=== PATIENT | female | born 1995 | race African-American/Black ===

== ENCOUNTER 2020-05-19 18:30 | Emergency (ER) | payer SELFPAY ==
[2020-05-19] MEDS ORDERED: ONDANSETRON 4 MG/2 ML VIAL ONE ×2 (21:39→23:43)
[2020-05-19 21:51] LABS: Absolute Lymphocytes (CBC) 1.4 K/uL (0.7-4.9); Basophils % 0.3 % (0-1.3); Hematocrit 45.1 % (36.0-45.0); Lymphocytes % 16.1 % (15.3-44.8); MPV 11.1 fL (7.6-11.3); RBC Red Blood Cell Count 5.17 M/uL (3.86-4.86)
[2020-05-19 22:02] LABS: ALT/SGPT 181 U/L (12-78); AST/SGOT 107 U/L (15-37); Albumin 3.8 g/dL (3.4-5.0); Alkaline Phosphatase 75 U/L (45-117); BUN Blood Urea Nitrogen 8 mg/dL (7-18); Bicarbonate 27 mmol/L (21-32); Bilirubin Direct 0.2 mg/dL (0-0.2); Bilirubin Total 0.9 mg/dL (0.2-1.0); Glucose Level 278 mg/dL (74-106); Lipase 122 U/L (73-393); Potassium 3.5 mmol/L (3.5-5.1); Protein, Total 9.3 g/dL (6.4-8.2); Sodium Level 134 mmol/L (136-145)
--- OUTSIDE RECORDS SUMMARY | 2020-05-19 22:52 | XMS REPORT | Continuity of Care Document ---
:1995 Author Organization [facility] t Address [address] [place] [address] Care Team Providers Name Role Phone Unavailable Unavailable Unavailable Problems This patient has no known problems. Allergies, Adverse Reactions, Alerts This patient has no known allergies or adverse reactions. Medications This patient has no known medications. Procedures This patient has no known procedures. Results This patient has no known results.
[2020-05-19] MEDS ORDERED: METOCLOPRAMIDE 10 MG/2mL INJ ONE (23:43)
[2020-05-19] MEDS ORDERED: NA CHLORIDE 0.9% 100 ML IV ONE (23:44)
[2020-05-20] MEDS ORDERED: FENTANYL CITR 100 MCG/2 ML ONE (00:22)
[2020-05-20] MEDS ORDERED: NA CHLORIDE 0.9% 1,000 ML ONE (00:28)
[2020-05-20] MEDS ORDERED: DIPHENHYDRAMINE 50 MG/ML VIAL ONE (00:28)
[2020-05-20 01:24] LABS: Blood Morphology Comment NOT SEEN (NOT SEEN); Platelet Estimate ADEQ; Urine White Blood Cell Casts OK
--- NOTE | 2020-05-20 10:34 | ER ---
Nurse's Notes [facility] Name: Radha Garsia Age: 25 yrs Sex: Female : 1995 Arrival Date: 05/19/2020 Time: 18:39 Bed 19 Private MD: Diagnosis: Headache;Vomiting Presentation: 05/19 18:44 Chief complaint: Patient states: I got tested for COVID-19 pn Monday. Symptoms when ca1 away but this morning I tried to eat something and I threw it up. I can't eat anything, I can't keep anything down. I am diabetic so am worried, I have headaches, body aches, fatigue. Denies abdominal pain. Denies fever. Reports occasional cough. Denies SOB at this time. Coronavirus screen: Patient reports a cough. Patient denies shortness of breath or difficulty breathing. Patient denies measured and/or subjective temperature greater than 100.4F prior to today's visit. Patient denies travel on a cruise ship or to a country the [facility] currently lists as an affected area. Patient denies contact with known and/or suspected case of COVID-19. I Tested on Monday at [place], No results at this time. Reports symptoms resolved. Ebola Screen: Patient negative for fever greater than or equal to 101.5 degrees Fahrenheit, and additional compatible Ebola Virus Disease symptoms Patient denies exposure to infectious person. Patient denies travel to an Ebola-affected area in the 21 days before illness onset. No symptoms or risks identified at this time. Initial Sepsis Screen: Does the patient meet any 2 criteria? No. Patient's initial sepsis screen is negative. Does the patient have a suspected source of infection? No. Patient's initial sepsis screen is negative. Risk Assessment: Do you want to hurt yourself or someone else? Patient reports no desire to harm self or others. Onset of symptoms was May 19, 2020. 18:44 Method Of Arrival: Ambulatory ca1 18:44 Acuity: NITO 3 ca1 Triage Assessment: 23:44 General: Appears in no apparent distress. uncomfortable, Behavior is calm, cooperative. ls4 GI: Reports nausea, vomiting. 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 - Social history:: Smoking status: Patient denies any tobacco usage or history of. Screenin:28 Abuse screen: Denies threats or abuse. Nutritional screening: No deficits noted. ea Tuberculosis screening: No symptoms or risk factors identified. Fall Risk None identified. Assessment: 21:56 General: Appears in no apparent distress. Behavior is calm, cooperative, appropriate ea for age. Pain: Denies pain. Neuro: Level of Consciousness is awake, alert, obeys commands, Oriented to person, place, time. Cardiovascular: Patient's skin is warm and dry. Respiratory: Airway is patent Respiratory effort is even, unlabored, Respiratory pattern is regular, symmetrical. GI: Abdomen is non-distended. Derm: Skin is dry, Skin is pale, Skin temperature is warm. 22:36 Reassessment: Patient and/or family updated on plan of care and expected duration. Pain ea level reassessed. Patient is alert, oriented x 3, equal unlabored respirations, skin warm/dry/pink. 05/20 00:34 Reassessment: Patient appears in no apparent distress at this time. Patient and/or ls4 family updated on plan of care and expected duration. Pain level reassessed. Patient is alert, oriented x 3, equal unlabored respirations, skin warm/dry/pink. Patient states feeling better. Patient states symptoms have improved. pt states she is feeling better and would like to go home . 02:24 Reassessment: Patient appears in no apparent distress at this time. Patient is alert, lp1 oriented x 3, equal unlabored respirations, skin warm/dry/pink. patient demonstrates understanding of discharge instructions, family member at bedside. Vital Signs: 05/19 18:44 BP 134 / 108; Pulse 111; Resp 18; Temp 99.3(O); Pulse Ox 97% on R/A; Weight 104.33 kg ca1 (R); Height 5 ft. 9 in. (175.26 cm) (R); 23:45 BP 114 / 87; Pulse 101; Resp 18; Pulse Ox 99% on R/A; Pain 6/10; ls4 05/20 02:23 BP 114 / 77; Pulse 93; Resp 18; Temp 98.8; Pulse Ox 99% on R/A; lp1 05/19 18:44 Body Mass Index 33.96 (104.33 kg, 175.26 cm) ca1 ED Course: 05/19 18:39 Patient arrived in ED. mr 18:48 Triage completed. ca1 18:54 Arm band placed on right wrist. ca1 20:39 Darnell Chan PA is PHCP. jmm 20:39 Artur Buchanan MD is Attending Physician. jmm 21:25 Roopa Reza, ADAN is Primary Nurse. ea 21:28 Inserted saline lock: 20 gauge in right antecubital area, using aseptic technique. ea 21:29 Patient has correct armband on for positive identification. Bed in low position. Call ea light in reach. Side rails up X 1. 22:30 Report given to Geri ARELLANO. ea 05/20 00:36 No provider procedures requiring assistance completed. Patient maintains SpO2 ls4 saturation greater than 95% on room air. 02:02 Head Brain Wo Cont In Process Unspecified. EDMS 02:24 IV discontinued, No redness/swelling at site. Pressure dressing applied. lp1 Administered Medications: 05/19 21:35 Drug: Zofran (Ondansetron) 4 mg Route: IVP; Site: right antecubital; ea 05/20 00:35 Follow up: Response: No adverse reaction ls4 00:35 Not Given (Patient Refused): fentaNYL (PF) 25 mcg IVP once; RASS on ADMIN: Combtv4, ls4 Very Agttd3, Agttd2, Rstlss1, AlertClm0, Drwsy-1, Lt Sdtn-2, Mod Sdtn-3, Dp Sdtn-4, UnArsble-5 00:35 Drug: diphenhydrAMINE 50 mg Route: IVP; Site: right antecubital; ls4 Point of Care Testing: Blood Glucose: 05/19 18:54 Blood Glucose: 227 mg/dL; ca1 Ranges: Outcome: 05/20 01:48 Discharge ordered by . jmm 02:24 Discharged to home ambulatory, with family. lp1 02:24 Condition: good 02:24 Discharge instructions given to patient, Instructed on discharge instructions, follow up and referral plans. medication usage, Demonstrated understanding of instructions, follow-up care, medications, Prescriptions given X 2. 02:25 Patient left the ED. lp1 Signatures: Dispatcher [employer] EDMS Darnell Chan PA PA jmm Rivera, Mary mr Landy Barragan, RN RN lp1 Roopa Reza, RN Geri Johnson ea, RN RN ls4 Margot Duckworth RN RN ca1
--- NOTE | 2020-05-20 10:35 | EDPHYS ---
Physician Documentation [facility] Name: Radha Garsia Age: 25 yrs Sex: Female : 1995 Arrival Date: 05/19/2020 Time: 18:39 Bed 19 Private MD: ED Physician Artur Buchanan HPI: 05/19 20:45 This 25 yrs old Black Female presents to ER via Ambulatory with complaints of Vomiting, jmm Dehydration. 20:45 The patient presents to the emergency department with nausea, vomiting. Onset: The jmm symptoms/episode began/occurred gradually, 2 week(s) ago. Possible causes: unknown. The symptoms are aggravated by nothing. The symptoms are alleviated by nothing. This is a 25 year old female with a history of DM, HTN that presents to the ED with complaints fo frontal headache described as a migraine. Patient states this pain has been ongoing for the past week but states new onset of migraines beginning approx 1 month ago. . 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 - Social history:: Smoking status: Patient denies any tobacco usage or history of. ROS: 20:45 Cardiovascular: Negative for chest pain, palpitations, and edema, Respiratory: Negative jmm for shortness of breath, cough, wheezing, and pleuritic chest pain. 20:45 Constitutional: Positive for body aches. 20:45 Abdomen/GI: Positive for nausea and vomiting. 20:45 All other systems are negative. Exam: 20:45 Constitutional: This is a well developed, well nourished patient who is awake, alert, jmm and in no acute distress. Head/Face: atraumatic. Eyes: EOMI, no conjunctival erythema appreciated ENT: Moist Mucus Membranes Neck: Trachea midline, Supple Chest/axilla: Normal chest wall appearance and motion. Cardiovascular: Regular rate and rhythm. No edema appreciated Respiratory: Normal respirations, no respiratory distress appreciated Abdomen/GI: Non distended, soft Back: Normal ROM Skin: General appearance color normal MS/ Extremity: Moves all extremities, no obvious deformities appreciated, no edema noted to the lower extremities Neuro: Awake and alert, normal gait Psych: Behavior is normal, Mood is normal, Patient is cooperative and pleasant Vital Signs: 18:44 BP 134 / 108; Pulse 111; Resp 18; Temp 99.3(O); Pulse Ox 97% on R/A; Weight 104.33 kg ca1 (R); Height 5 ft. 9 in. (175.26 cm) (R); 23:45 BP 114 / 87; Pulse 101; Resp 18; Pulse Ox 99% on R/A; Pain 6/10; ls4 05/20 02:23 BP 114 / 77; Pulse 93; Resp 18; Temp 98.8; Pulse Ox 99% on R/A; lp1 05/19 18:44 Body Mass Index 33.96 (104.33 kg, 175.26 cm) ca1 MDM: 05/19 20:45 Patient medically screened. [facility] 05/20 01:45 Data reviewed: vital signs, nurses notes. Counseling: I had a detailed discussion with cony the patient and/or guardian regarding: the historical points, exam findings, and any diagnostic results supporting the discharge/admit diagnosis, lab results, the need for outpatient follow up, to return to the emergency department if symptoms worsen or persist or if there are any questions or concerns that arise at home. ED course: Pain is alleviated in the ED. Patient is advised to follow up with PCP and otherwise given strict return precautions. Patient understood and agrees with the plan of care. . 05/19 22:30 Order name: Urine --Ancillary (enter results) tt3 05/19 22:31 Order name: Urine Dipstick--Ancillary (enter results) tt3 05/20 01:06 Order name: Basic Metabolic Panel; Complete Time: 01:14 EDAR 05/20 01:06 Order name: Liver (Hepatic) Function; Complete Time: 01:14 EDAR 05/20 01:06 Order name: Lipase; Complete Time: 01:14 EDAR 05/20 01:06 Order name: CBC with Automated Diff; Complete Time: 01:34 EDMS 05/20 01:24 Order name: CBC Smear Scan; Complete Time: 01:34 EDMS 05/20 01:59 Order name: Head Brain Wo Cont EDMS 05/19 20:57 Order name: IV Saline Lock; Complete Time: 21:28 [facility] 05/19 20:57 Order name: Labs collected and sent; Complete Time: 21:28 [facility] 05/19 20:57 Order name: Urine Dipstick-Ancillary (obtain specimen); Complete Time: 00:35 [facility] 05/19 20:58 Order name: Urine Test (obtain specimen); Complete Time: 00:35 jm Administered Medications: 05/19 21:35 Drug: Zofran (Ondansetron) 4 mg Route: IVP; Site: right antecubital; ea 05/20 00:35 Follow up: Response: No adverse reaction ls4 00:35 Not Given (Patient Refused): fentaNYL (PF) 25 mcg IVP once; RASS on ADMIN: Combtv4, ls4 Very Agttd3, Agttd2, Rstlss1, AlertClm0, Drwsy-1, Lt Sdtn-2, Mod Sdtn-3, Dp Sdtn-4, UnArsble-5 00:35 Drug: diphenhydrAMINE 50 mg Route: IVP; Site: right antecubital; ls4 Point of Care Testing: Blood Glucose: 05/19 18:54 Blood Glucose: 227 mg/dL; ca1 Ranges: Critical Glucose Levels:Adult <50 mg/dl or >400 mg/dl <40 mg/dl or >180 mg/dl Disposition: 05/20 06:20 Co-signature as Attending Physician, Artur Buchanan MD I agree with the assessment and [facility] plan of care. Disposition: 05/20/20 01:48 Discharged to Home. Impression: Headache, Vomiting. - Condition is Stable. - Discharge Instructions: General Headache Without Cause, Nausea and Vomiting, Adult. - Prescriptions for Zofran ODT 4 mg Oral tablet,disintegrating - place 1 tablet by TRANSLINGUAL route every 4-6 hours; 20 tablet. Fiorinal 50- 325-40 mg Oral Capsule - take 1 capsule by ORAL route every 4 hours As needed - not to exceed 6 capsules per day; 20 capsule. - Medication Reconciliation Form, Thank You Letter, Antibiotic Education, Prescription Opioid Use form. - Follow up: Private Physician; When: 2 - 3 days; Reason: Recheck today's complaints, Continuance of care, Re-evaluation by your physician. Signatures: Dispatcher [employer] EDMS DewayneArtur MD MD cha Mickail, Joel, PA PA jmm Landy Barragan RN RN lp1 Roopa Reza, RN RN Geri Aguilera RN RN ls4 Margot Duckworth RN RN ca1 Corrections: (The following items were deleted from the chart) 02:25 01:48 05/20/2020 01:48 Discharged to Home. Impression: Headache; Vomiting. Condition is lp1 Stable. Forms are Medication Reconciliation Form, Thank You Letter, Antibiotic Education, Prescription Opioid Use. Follow up: Private Physician; When: 2 - 3 days; Reason: Recheck today's complaints, Continuance of care, Re-evaluation by your physician. cony
--- NOTE | 2020-05-20 13:00 | RAD REPORT ---
EXAM DESCRIPTION: Head Brain Wo Cont CLINICAL HISTORY: HEADACHE COMPARISON: None. TECHNIQUE: CT HEAD WITHOUT IV CONTRAST on 05/19/2020 10:05 PM CDT This exam was performed according to our departmental dose-optimization program, which includes autom ated exposure control, adjustment of the mA and/or kV according to patient size and/or use of iterati ve reconstruction technique. FINDINGS: There is no acute hemorrhage, mass effect or midline shift. Marie-white differentiation is preserved. There is no hydrocephalus. There is no significant volume loss for age. The calvarium is intact. Orbits and globes are unremarkable. The paranasal sinuses are clear. Mastoid air cells are clear. IMPRESSION: No acute intracranial findings. Electronically signed by: Chace Baker MD 05/20/2020 1:30 AM CDT Due to temporary technical issues with the PACS/Fluency reporting system, reports are being signed by the in house radiologist without review as a courtesy to ensure prompt reporting. The interpreting r adiologist is fully responsible for the content of the report.
[2020-05-20 13:02] LABS: Urine Specific Gravity 1.025 (1.005-1.030)
[2020-05-20 13:02] LABS: Urine Blood NEGATIVE (NEG); Urine Glucose 2+ (NEG); Urine Protein 2+ (NEG); Urine Specific Gravity 1.025 (1.005-1.030); Urine pH 5.5 (5.0-7.0)
[2020-05-20 15:32] VITALS: O2SAT 99
[2020-05-20 15:33] VITALS: BP 114/77; TEMP 98.8
== END 2020-05-20 02:25 | disposition home or self-care (01) ==
LOC: ER 18:30
DX: R51 Headache (principal); I10 Essential (primary) hypertension
CPT/HCPCS: 36415; 70450; 80048; 80076; 81003; 81025; 82947; 83690; 85025; 96374; 96375; 99284; J1200; J2405; J2765; J3010; J7030

== ENCOUNTER 2021-07-07 11:16 | Emergency (ER) | payer SELFPAY ==
--- OUTSIDE RECORDS SUMMARY | 2021-07-07 11:18 | XMS REPORT | Continuity of Care Document ---
:1995 Author Organization [facility] t Address [address] [place] [address] [address]. [address] [place] [id number] Care Team Providers Name Role Phone Unavailable Unavailable Unavailable Problems This patient has no known problems. Allergies, Adverse Reactions, Alerts This patient has no known allergies or adverse reactions. Medications This patient has no known medications. Procedures This patient has no known procedures. Results This patient has no known results.
[2021-07-07] MEDS ORDERED: ONDANSETRON 4 MG (ODT) TAB ONE ×2 (13:21→15:21)
--- NOTE | 2021-07-07 13:37 | RAD REPORT ---
EXAM DESCRIPTION: Christen Almendarez (2 Views)07/07/2021 1:29 pm CLINICAL HISTORY: sob COMPARISON: 2017 FINDINGS: The lungs appear clear of acute infiltrate. The heart is normal size IMPRESSION: No acute abnormalities displayed
--- NOTE | 2021-07-07 16:06 | EDPHYS ---
Physician Documentation [facility] Name: Radha Garsia Age: 26 yrs Sex: Female : 1995 Arrival Date: 07/07/2021 Time: 11:17 Bed DIS2 Private MD: ED Physician Artemio Cedillo HPI: 07/07 16:04 This 26 yrs old Black Female presents to ER via Ambulatory with complaints of Vomiting, kb Shortness Of Breath. 16:04 The patient presents to the emergency department with nausea, vomiting. Onset: The kb symptoms/episode began/occurred yesterday. Possible causes: unknown. The symptoms are aggravated by nothing. The symptoms are alleviated by nothing. Associated signs and symptoms: Pertinent positives: nausea, vomiting. Severity of symptoms: At their worst the symptoms were moderate in the emergency department the symptoms are unchanged. The patient has not experienced similar symptoms in the past. The patient has not recently seen a physician. Pt reports nausea, vomiting, decreased appetite and shortness of breath since yesterday. 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 - Social history:: Smoking status: Patient denies any tobacco usage or history of. ROS: 16:04 Constitutional: Negative for fever, chills, and weight loss. kb 16:04 Respiratory: Positive for shortness of breath, Negative for cough, dyspnea on exertion, hemoptysis, orthopnea, pleurisy, sputum production, wheezing. 16:04 Abdomen/GI: Positive for nausea and vomiting, Negative for abdominal pain. 16:04 All other systems are negative. Exam: 16:04 Constitutional: This is a well developed, well nourished patient who is awake, alert, kb and in no acute distress. Head/Face: Normocephalic, atraumatic. ENT: Moist Mucous membranes Cardiovascular: Regular rate and rhythm with a normal S1 and S2. No gallops, murmurs, or rubs. No pulse deficits. Respiratory: Respirations even and unlabored. No increased work of breathing, no retractions or nasal flaring. Abdomen/GI: Soft, non-tender. No distention Back: No spinal tenderness. No costovertebral tenderness. Full range of motion. Skin: Warm, dry with normal turgor. Normal color. MS/ Extremity: Pulses equal, no cyanosis. Neurovascular intact. Full, normal range of motion. Neuro: Awake and alert, GCS 15, oriented to person, place, time, and situation. Moves all extremities. Normal gait. Psych: Awake, alert, with orientation to person, place and time. Behavior, mood, and affect are within normal limits. Vital Signs: 12:56 BP 132 / 84; Pulse 91; Resp 15; Temp 97.4; Pulse Ox 96% ; Weight 99.79 kg; jl7 15:07 BP 128 / 78; Pulse 82; Resp 17; Pulse Ox 98% on R/A; ld1 MDM: 13:00 Patient medically screened. kb 16:06 Data reviewed: vital signs, nurses notes. Data interpreted: Pulse oximetry: on room air kb is 98 %. Interpretation: normal. Counseling: I had a detailed discussion with the patient and/or guardian regarding: the historical points, exam findings, and any diagnostic results supporting the discharge/admit diagnosis, lab results, radiology results, the need for outpatient follow up, a family practitioner, to return to the emergency department if symptoms worsen or persist or if there are any questions or concerns that arise at home. 07/07 15:54 Order name: SARS-COV-2 RT PCR; Complete Time: 16:04 EDMS 07/07 13:00 Order name: Chest Pa And Lat (2 Views) XRAY; Complete Time: 13:51 kb Administered Medications: 15:00 Drug: Zofran (Ondansetron) 4 mg Route: PO; ld1 15:09 Follow up: Response: No adverse reaction ld1 Disposition: 07/08 07:16 Co-signature as Attending Physician, Artemio Cedillo MD I agree with the assessment and kdr plan of care. Disposition Summary: 07/07/21 16:06 Discharge Ordered Location: Home kb Condition: Stable kb Diagnosis - Nausea with vomiting, unspecified kb Followup: kb - With: Emergency Department - When: As needed - Reason: Worsening of condition Followup: kb - With: Private Physician - When: 2 - 3 days - Reason: Recheck today's complaints, Continuance of care, Re-evaluation by your physician Discharge Instructions: - Discharge Summary Sheet kb - Nausea and Vomiting, Adult, [id number] kb Forms: - Medication Reconciliation Form kb - Thank You Letter kb - Antibiotic Education kb - Prescription Opioid Use kb - Work release form aa5 Prescriptions: - Zofran 4 mg Oral Tablet - take 1 tablet by ORAL route every 6 hours As needed; 20 tablet; Refills: 0, kb Product Selection Permitted Signatures: Dispatcher [employer] EDMariama Del Castillo, KODAK-C KODAK-Artemio Vigil MD MD kdr Leal, Jahala RN RN jl7 [place] Young RN RN ld1 Corrections: (The following items were deleted from the chart) 07/07 14:52 13:00 CORONAVIRUS+[email or web address] ordered. [facility]
--- NOTE | 2021-07-07 16:06 | ER ---
Nurse's Notes [facility] Name: Radha Garsia Age: 26 yrs Sex: Female : 1995 Arrival Date: 07/07/2021 Time: 11:17 Bed DIS2 Private MD: Diagnosis: Nausea with vomiting, unspecified Presentation: 07/07 12:56 Chief complaint: Patient states: Decreased appetite, nausea and SOB x 2 days. 7 Coronavirus screen: Client denies travel out of the [place] in the last 14 days. shortness of breath, Client presents with at least one sign or symptom that may indicate coronavirus-19. Standard/surgical mask placed on the client. Provider contacted for isolation considerations. Ebola Screen: No symptoms or risks identified at this time. Initial Sepsis Screen: Does the patient meet any 2 criteria? No. Patient's initial sepsis screen is negative. Does the patient have a suspected source of infection? No. Patient's initial sepsis screen is negative. Risk Assessment: Do you want to hurt yourself or someone else? Patient reports no desire to harm self or others. Onset of symptoms was July 06, 2021. 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 - Social history:: Smoking status: Patient denies any tobacco usage or history of. Screenin:07 Abuse screen: Denies threats or abuse. Denies injuries from another. Nutritional ld1 screening: No deficits noted. Tuberculosis screening: No symptoms or risk factors identified. Fall Risk None identified. Assessment: 15:07 General: Appears in no apparent distress. comfortable, Behavior is calm, cooperative, ld1 appropriate for age. Pain: Denies pain. Neuro: Level of Consciousness is awake, alert, obeys commands, Oriented to person, place, time, situation. Cardiovascular: Capillary refill < 3 seconds Patient's skin is warm and dry. Respiratory: Airway is patent Respiratory effort is even, unlabored, Respiratory pattern is regular, symmetrical. GI: Abdomen is flat, non-distended, Reports nausea, vomiting. : No signs and/or symptoms were reported regarding the genitourinary system. EENT: No signs and/or symptoms were reported regarding the EENT system. Derm: No signs and/or symptoms reported regarding the dermatologic system. Musculoskeletal: No signs and/or symptoms reported regarding the musculoskeletal system. 16:25 Neuro: Level of Consciousness is awake, alert, obeys commands, Oriented to person, aa5 place, time, situation. Respiratory: Airway is patent Respiratory effort is even, unlabored, Respiratory pattern is regular, symmetrical. Derm: Skin is dry, Skin is normal, Skin temperature is warm. Vital Signs: 12:56 BP 132 / 84; Pulse 91; Resp 15; Temp 97.4; Pulse Ox 96% ; Weight 99.79 kg; jl7 15:07 BP 128 / 78; Pulse 82; Resp 17; Pulse Ox 98% on R/A; ld1 ED Course: 11:17 Patient arrived in ED. ds1 12:52 Artemio Cedillo MD is Attending Physician. kdr 12:58 Triage completed. jl7 12:58 Arm band placed on right wrist. jl7 12:59 [place]ama [place] F[facility]C [facility] kb 13:27 Chest Pa And Lat (2 Views) XRAY In Process Unspecified. EDMS 14:58 Florida Young, RN is Primary Nurse. ld1 15:07 Patient has correct armband on for positive identification. Call light in reach. Pulse ld1 ox on. NIBP on. 15:07 No provider procedures requiring assistance completed. ld1 16:25 Patient did not have IV access during this emergency room visit. aa5 Administered Medications: 15:00 Drug: Zofran (Ondansetron) 4 mg Route: PO; ld1 15:09 Follow up: Response: No adverse reaction ld1 Outcome: 16:06 Discharge ordered by . kb 16:25 Discharged to home ambulatory. aa5 16:25 Condition: stable 16:25 Discharge instructions given to patient, Instructed on discharge instructions, follow up and referral plans. medication usage, Demonstrated understanding of instructions, follow-up care, medications, Prescriptions given X 1. 16:27 Patient left the ED. aa5 Signatures: Dispatcher [employer] EDMS Mariama Hills FNP-C FNP-Tariqb Artemio Cedillo MD MD kdr Mary Richardson ds1 Lisa Diego, RN RN aa5 Tigist Sanders RN RN jl7 Florida Young RN RN ld1
[2021-07-07 16:47] VITALS: TEMP 97.4
[2021-07-07 16:49] VITALS: BP 128/78; O2SAT 98
== END 2021-07-07 16:27 | disposition home or self-care (01) ==
LOC: ER 11:16
DX: R11.2 Nausea with vomiting, unspecified (principal); Z20.822 Contact with and (suspected) exposure to COVID-19; I10 Essential (primary) hypertension
CPT/HCPCS: 71046; 99284; U0003

== ENCOUNTER 2021-12-01 20:03 | Emergency (ER) | payer OTHER, SELFPAY ==
--- OUTSIDE RECORDS SUMMARY | 2021-12-01 20:06 | XMS REPORT | Continuity of Care Document ---
:1995 Author Organization [facility] Address [address] [place] [address] Dr. Ayala [address] [place] [id number] Care Team Providers Name Role Phone RHEA Attending Clinician Unavailable RHEA Admitting Clinician Unavailable Payers Payer Name Policy Type Policy Number Effective Date Expiration Date S ource Problems This patient has no known problems. Allergies, Adverse Reactions, Alerts This patient has no known allergies or adverse reactions. Medications This patient has no known medications. Procedures This patient has no known procedures. Encounters Start End Encounter Admission Attending Care Care Encounter Source Date/Time Date/Time Type Type Clinicians Facility Department ID 2021-10-20 2021-10-20 Outpatient IAN FAJARDO [facility] [phone] [place] 11:25:00 11:25:00 [place] [id number] [facility] Program Results This patient has no known results.
[2021-12-01 22:08] LABS: SARS-COV-2 RT PCR POSITIVE (NEGATIVE)
--- NOTE | 2021-12-01 22:29 | ER ---
Nurse's Notes [facility] Name: Radha Garsia Age: 26 yrs Sex: Female : 1995 Arrival Date: 12/01/2021 Time: 20:17 Bed DIS1 Private MD: Diagnosis: Positive Covid 19 Presentation: 12/01 20:46 Chief complaint:. ld1 20:49 Chief complaint: Patient states: COVID symptoms - sore throat, headache, SOB. ld1 Coronavirus screen: Client presents with at least one sign or symptom that may indicate coronavirus-19. Standard/surgical mask placed on the client. Ebola Screen: No symptoms or risks identified at this time. Initial Sepsis Screen: Does the patient meet any 2 criteria? No. Patient's initial sepsis screen is negative. Does the patient have a suspected source of infection? No. Patient's initial sepsis screen is negative. Risk Assessment: Do you want to hurt yourself or someone else? Patient reports no desire to harm self or others. Onset of symptoms was December 01, 2021. 20:49 Method Of Arrival: Ambulatory ld1 20:49 Acuity: NITO 4 ld1 Triage Assessment: 20:50 General: Appears in no apparent distress. comfortable, Behavior is calm, cooperative, ld1 appropriate for age. Pain: Denies pain. Respiratory: Reports shortness of breath cough that is Airway is patent Respiratory effort is even, unlabored, Respiratory pattern is regular, symmetrical, Onset: The symptoms/episode began/occurred gradually, the patient has mild shortness of breath. 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 - Social history:: Smoking status: Patient denies any tobacco usage or history of. Patient/guardian denies using alcohol. Screenin:45 Abuse screen: Denies threats or abuse. Nutritional screening: No deficits noted. bb Tuberculosis screening: No symptoms or risk factors identified. Fall Risk None identified. Assessment: 22:45 Reassessment: Patient is alert, oriented x 3, equal unlabored respirations, skin bb warm/dry/pink. pt seen by this RN at discharge pt verbalized understanding of and agrees to plan of care discharge instructions given pt ambulated with steady gait to exit. Vital Signs: 20:49 BP 124 / 81; Pulse 98; Resp 18; Temp 98.4(O); Pulse Ox 100% on R/A; Weight 104.33 kg; ld1 Height 5 ft. 8 in. (172.72 cm); Pain 0/10; 20:49 Body Mass Index 34.97 (104.33 kg, 172.72 cm) ld1 ED Course: 20:17 Patient arrived in ED. kc5 20:50 Triage completed. ld1 20:50 Arm band placed on right wrist. ld1 22:10 Adrien Hunter MD is Attending Physician. pkl 22:45 Patient has correct armband on for positive identification. bb 22:45 No provider procedures requiring assistance completed. Patient did not have IV access bb during this emergency room visit. 22:46 COVID-19/FLU A+B (Document "Date of Onset" if Symptomatic) Sent. bb 22:46 Strep Sent. bb Administered Medications: No medications were administered Outcome: 22:28 Discharge ordered by . pkl 22:45 Discharged to home ambulatory. bb 22:45 Condition: stable 22:45 Discharge instructions given to patient, Instructed on discharge instructions, follow up and referral plans. medication usage, Demonstrated understanding of instructions, follow-up care, medications, Prescriptions given X 1. 22:46 Patient left the ED. bb Signatures: Adrien Hunter MD MD pkl Symone Stein RN RN bb [place] Young RN RN ld1 Kina Briggs kc5
--- NOTE | 2021-12-01 22:29 | EDPHYS ---
Physician Documentation [facility] Name: Radha Garsia Age: 26 yrs Sex: Female : 1995 Arrival Date: 12/01/2021 Time: 20:17 Bed DIS1 Private MD: ED Physician Adrien Hunter HPI: 12/01 22:20 This 26 yrs old Black Female presents to ER via Ambulatory with complaints of Shortness pkl Of Breath, Fever, Cough, Sore Throat. 22:20 Onset: The symptoms/episode began/occurred yesterday. Associated signs and symptoms: pkl Pertinent positives: headache, bodyache. Patient not vaccinated for Covid 19. 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 - Social history:: Smoking status: Patient denies any tobacco usage or history of. Patient/guardian denies using alcohol. ROS: 22:20 Eyes: Negative for injury, pain, redness, and discharge. pkl 22:20 ENT: Positive for sore throat. 22:20 Neck: Negative for stiffness. 22:20 Cardiovascular: Negative for chest pain. 22:20 Respiratory: Positive for cough, with no reported sputum. 22:20 Abdomen/GI: Negative for abdominal pain, nausea, vomiting, and diarrhea. 22:20 Back: Negative for acute changes. 22:20 : Negative for urinary symptoms. 22:20 MS/extremity: Negative for acute changes. 22:20 Skin: Negative for rash. 22:20 Neuro: Positive for headache. Exam: 22:20 Head/Face: Normocephalic, atraumatic. Eyes: Pupils equal round and reactive to light, pkl extra-ocular motions intact. Lids and lashes normal. Conjunctiva and sclera are non-icteric and not injected. Cornea within normal limits. Periorbital areas with no swelling, redness, or edema. ENT: Nares patent. No nasal discharge, no septal abnormalities noted. Tympanic membranes are normal and external auditory canals are clear. Oropharynx with no redness, swelling, or masses, exudates, or evidence of obstruction, uvula midline. Mucous membranes moist. Neck: Trachea midline, no thyromegaly or masses palpated, and no cervical lymphadenopathy. Supple, full range of motion without nuchal rigidity, or vertebral point tenderness. No Meningismus. Chest/axilla: Normal chest wall appearance and motion. Nontender with no deformity. No lesions are appreciated. Cardiovascular: Regular rate and rhythm with a normal S1 and S2. No gallops, murmurs, or rubs. Normal PMI, no JVD. No pulse deficits. Respiratory: Lungs have equal breath sounds bilaterally, clear to auscultation and percussion. No rales, rhonchi or wheezes noted. No increased work of breathing, no retractions or nasal flaring. Abdomen/GI: Soft, non-tender, with normal bowel sounds. No distension or tympany. No guarding or rebound. No evidence of tenderness throughout. Back: No spinal tenderness. No costovertebral tenderness. Full range of motion. Skin: Warm, dry with normal turgor. Normal color with no rashes, no lesions, and no evidence of cellulitis. MS/ Extremity: Pulses equal, no cyanosis. Neurovascular intact. Full, normal range of motion. Neuro: Awake and alert, GCS 15, oriented to person, place, time, and situation. Cranial nerves II-XII grossly intact. Motor strength 5/5 in all extremities. Sensory grossly intact. Cerebellar exam normal. Normal gait. Vital Signs: 20:49 BP 124 / 81; Pulse 98; Resp 18; Temp 98.4(O); Pulse Ox 100% on R/A; Weight 104.33 kg; ld1 Height 5 ft. 8 in. (172.72 cm); Pain 0/10; 20:49 Body Mass Index 34.97 (104.33 kg, 172.72 cm) ld1 MDM: 22:11 Patient medically screened. pkl 22:20 Data reviewed: vital signs, nurses notes. ED course: Discussed lab results with pkl patient. Advised to quarantine for 5 days. Follow up with PCP in 2 to 3 days. Return if necessary. Patient understood instructions. 12/01 20:51 Order name: COVID-19/FLU A+B (Document "Date of Onset" if Symptomatic) ld1 12/01 20:51 Order name: Strep ld1 12/01 20:52 Order name: COVID-19/FLU A+B; Complete Time: 22:11 EDMS 12/01 20:52 Order name: Group A Streptococcus Rapid Sc; Complete Time: 22:11 EDMS 12/01 21:16 Order name: Throat Culture EDMS Administered Medications: No medications were administered Disposition Summary: 12/01/21 22:28 Discharge Ordered Location: Home pkl Condition: Stable pkl Problem: new pkl Symptoms: are unchanged pkl Diagnosis - Positive Covid 19 pkl Followup: pkl - With: Private Physician - When: 2 - 3 days - Reason: Re-evaluation by your physician Discharge Instructions: - Discharge Summary Sheet pkl Forms: - Medication Reconciliation Form pkl - Thank You Letter pkl - Antibiotic Education pkl - Work release form pkl - Prescription Opioid Use pkl Prescriptions: - Zithromax Z-Rachid 250 mg Oral Tablet - take 1 tablet by ORAL route as directed for 5 days Day 1 - take two (2) tablets pkl one time. Day 2, 3, 4 , 5 take one (1) tablet once daily.; 6 tablet; Refills: 0, Product Selection Permitted Signatures: Dispatcher [employer] EDMS Adrien Hunter MD MD pkl Florida Young, RN RN ld1
[2021-12-01 22:50] VITALS: BP 124/81; TEMP 98.4; O2SAT 100
== END 2021-12-01 22:46 | disposition home or self-care (01) ==
LOC: ER 20:03
DX: U07.1 COVID-19 (principal)
CPT/HCPCS: 0240U; 87070; 87081; 99283